=== PATIENT | female | born 1985 | race Caucasian/White ===

== ENCOUNTER 2020-10-16 15:18 | Emergency (ER) | payer OTHER ==
[2020-10-16 17:51] LABS: BASOPHIL 0.9 % (0-2); BILIRUBIN NEGATIVE (NEGATIVE); BLOOD NEGATIVE Ery/uL (NEGATIVE); CLARITY CLEAR (CLEAR); COLOR YELLOW (YELLOW); EOSINOPHIL 1.9 % (0-5); GLUCOSE (U) NORMAL (NORMAL); HCT 43.5 % (37.0-47.0); HGB 14.6 g/dl (12.5-16.0); LEUKOCYTES NEGATIVE Leu/uL (NEGATIVE); LYMPHOCYTE 33.8 % (15-48); MCH 30.7 pg (25.0-31.0); MCHC 33.6 g/dL (32.0-36.0); MCV 91.6 fL (78.0-100.0); MONOCYTE 6.4 % (0-12); MPV 10.5 fL (6.0-9.5); NEUTROPHIL 56.8 % (41-80); NITRITE NEGATIVE (NEGATIVE); NRBC 0; PLT 307 K/uL (150-400); PROTEIN NEGATIVE (NEGATIVE); RBC 4.75 M/uL (4.20-5.40); UROBILINOGEN 0.2 mg/dL (0.2-1.0); WBC 6.4 K/uL (4.0-10.5)
[2020-10-16 17:58] LABS: BUN/CREAT RATIO (CALC) 11.2 RATIO; CREATININE 1.07 mg/dL (0.51-0.95); POTASSIUM 4.1 mmol/L (3.5-5.1)
== END 2020-10-16 19:03 | disposition home or self-care (01) ==
LOC: FER 15:18
PROVIDERS: Nurse Practitioner Family
DX: G43.909 Migraine, unspecified, not intractable, without status migrainosus (principal); Z86.718 Personal history of other venous thrombosis and embolism; Z90.49 Acquired absence of other specified parts of digestive tract; Z88.8 Allergy status to other drugs, medicaments and biological substances
CPT/HCPCS: 36415; 80048; 81003; 85025; J1100; J1885; J2405; J7030

== ENCOUNTER 2021-01-25 08:26 | Emergency (ER) | payer OTHER | END 2021-01-25 11:26 | disposition home or self-care (01) | LOC: FER 08:26 | DX: G25.79 Other drug induced movement disorders (principal); Z88.6 Allergy status to analgesic agent ==

== ENCOUNTER 2021-10-04 18:37 | Emergency (ER) | payer OTHER ==
[~2021-10-04 18:37] MED LIST: DIAZEPAM 5MG TAB5 MG PO
[2021-10-04 20:18] LABS: BASOPHIL 0.9 % (0-2); EOSINOPHIL 1.6 % (0-5); HCT 36.2 % (37.0-47.0); HGB 12.3 g/dl (12.5-16.0); LYMPHOCYTE 16.2 % (15-48); MCH 31.9 pg (25.0-31.0); MONOCYTE 6.1 % (0-12); MPV 10.8 fL (6.0-9.5); NEUTROPHIL 74.8 % (41-80); NRBC 0; PLT 277 K/uL (150-400); RBC 3.85 M/uL (4.20-5.40); RDW 12.7 % (11.5-14.0); WBC 6.9 K/uL (4.0-10.5)
[2021-10-04 20:19] LABS: BILIRUBIN NEGATIVE (NEGATIVE); BLOOD NEGATIVE Ery/uL (NEGATIVE); CLARITY CLEAR (CLEAR); COLOR YELLOW (YELLOW); GLUCOSE (U) NORMAL (NORMAL); LEUKOCYTES NEGATIVE Leu/uL (NEGATIVE); NITRITE NEGATIVE (NEGATIVE); PROTEIN NEGATIVE (NEGATIVE); UROBILINOGEN 0.2 mg/dL (0.2-1.0); pH 6.5 (5.0-9.0)
[2021-10-04 20:35] LABS: ALBUMIN 4.3 g/dL (3.4-5.0); BILIRUBIN - TOTAL 0.7 mg/dL (0.2-1.0); BUN/CREAT RATIO (CALC) 14.9 RATIO; CREATININE 0.87 mg/dL (0.51-0.95); GLOBULIN (CALCULATION) 2.8 g/dL; POTASSIUM 3.8 mmol/L (3.5-5.1); TOTAL PROTEIN 7.1 g/dL (6.4-8.2)
[2021-10-04] MEDS ORDERED: MIRALAX17 GM PO (21:45)
[2021-10-04] MEDS ORDERED: MOTRIN600 MG PO (21:45)
== END 2021-10-04 21:12 | disposition home or self-care (01) ==
LOC: FER 18:37
PROVIDERS: Physician Assistant
DX: K59.00 Constipation, unspecified (principal); N83.202 Unspecified ovarian cyst, left side; I10 Essential (primary) hypertension; Z88.6 Allergy status to analgesic agent
CPT/HCPCS: 36415; 80053; 81003; 85025; Q9967